=== PATIENT | male | born 1955 | race Caucasian/White ===

== ENCOUNTER → 2019-07-05 | Outpatient (CLI) | payer SELFPAY ==
[~2019-07-05] MED LIST: AMLODIPINE BESY10 MG PO; ATIVAN1 MG PO; ATORVASTATIN CA20 MG PO; CARBAMAZEPINE200 MG PO; FLONASE ALLERG9.9 ML; LAMOTRIGINE100 MG PO; LOSARTAN-HCTZ1 EAC1 PO; TERAZOSIN HCL1 MG PO
== END ==
LOC: SLEEP 19:31
PROVIDERS: ATTEND Internal Medicine Critical Care Medicine
DX: G47.33 Obstructive sleep apnea (adult) (pediatric) (principal)
CPT/HCPCS: 95811

== ENCOUNTER → 2019-07-23 | Outpatient (CLI) | payer SELFPAY ==
[~2019-07-23] MED LIST changes: +ALBUTEROL SULF 0.083% NEB SOLN 3 ML NEB ONE
== END ==
LOC: RESP 09:14
PROVIDERS: ATTEND Family Medicine
DX: J96.20 Acute and chronic respiratory failure, unspecified whether with hypoxia or hypercapnia (principal); J18.9 Pneumonia, unspecified organism; J42 Unspecified chronic bronchitis; J96.11 Chronic respiratory failure with hypoxia; Q79.1 Other congenital malformations of diaphragm; I10 Essential (primary) hypertension; G47.33 Obstructive sleep apnea (adult) (pediatric); Z68.42 Body mass index [BMI] 45.0-49.9, adult
CPT/HCPCS: 94060; 94640; 94727; 94729